=== PATIENT | male | born 1970 | race Caucasian/White ===

== ENCOUNTER 2024-04-11 05:19 | Emergency (ER) | payer OTHER ==
[~2024-04-11] VITALS: Ht 185.4 cm; Wt 91.0 kg
[2024-04-11 05:35] VITALS: BP 130/95; TEMP 97.9; O2SAT 99
[2024-04-11 06:26] VITALS: PULSE 85; RESP 18
[2024-04-11 07:34] LABS: Basophils # (auto) 0 10 ^3/uL (0-0.2); Basophils % (auto) 0.4 % (0.0-2.0); Eosinophils # (auto) 0 10 ^3/uL (0-0.8); Eosinophils % (auto) 0.9 % (0.0-7.0); Hematocrit 50.1 % (41.0-53.0); Hemoglobin 17.6 g/dL (13.5-17.5); Lymphocytes # (auto) 1.7 10 ^3/uL (0.4-5.4); Mean Corpuscular Hemoglobin 32.6 pg (28.0-32.0); Mean Corpuscular Hgb Conc. 35.2 g/dL (32.0-36.0); Mean Corpuscular Volume 92.6 fL (80.0-100.0); Monocytes # (auto) 0.5 10 ^3/uL (0-1.3); Monocytes % (auto) 9.5 % (0.0-12.0); Neutrophils # (auto) 3.1 10 ^3/uL (1.6-8.6); Neutrophils % (auto) 58.2 % (37.0-80.0); Nucleated Red Blood Cells % 0.3 %; Red Blood Cells 5.41 10^6/uL (4.5-5.90); Red Cell Distribution Width 12.8 % (11.8-14.3); White Blood Cell 5.4 10^3/uL (4.4-10.8)
[2024-04-11 07:47] LABS: Chloride 106 mmol/L (98-107); Potassium 3.8 mmol/L (3.5-5.1); Sodium 140 mmol/L (136-145)
[2024-04-11 07:48] LABS: Anion Gap 7 (5-15); Calcium 10.2 mg/dL (8.5-10.1); Carbon Dioxide 27 mmol/L (20-30)
[2024-04-11 07:53] LABS: Blood Urea Nitrogen 6 mg/dL (9-23); Glucose 100 mg/dL (74-106)
[2024-04-11 08:47] LABS: Urine Bacteria None Seen /hpf (None Seen)
[2024-04-11 08:56] LABS: Urine Blood Negative /uL (Negative); Urine Clarity Clear (Clear); Urine Color Light-Yellow (Yellow); Urine Protein, UAD Negative (Negative); Urine Urobilinogen Normal (Negative); Urine WBC 1 /hpf (0 - 3)
== END 2024-04-11 09:18 | disposition home or self-care (01) ==
LOC: ER 05:19
DX: R33.9 Retention of urine, unspecified (principal); N20.0 Calculus of kidney; N40.0 Benign prostatic hyperplasia without lower urinary tract symptoms; Z88.1 Allergy status to other antibiotic agents
CPT/HCPCS: 36415; 74176; 80048; 81001; 85025